=== PATIENT | female | born 2000 | race Caucasian/White ===

== ENCOUNTER 2019-01-23 21:55 | Emergency (ER) | payer OTHER ==
[2019-01-23 22:10] VITALS: BP 117/65; PULSE 90; TEMP 98.5; BMI 27.4
--- NOTE | 2019-01-23 22:32 | PDOC ---
Documentation entered by Sophy Hernandez SCRIBE, acting as scribe for Boni Saavedra MD. Boni Saavedra MD: This documentation has been prepared by the Mary eugene Daisy, SCRIBE, under my direction and personally reviewed by me in its entirety. I confirm that the documentation accurately reflects all work, treatment, procedures, and medical decision making performed by me. History of Present Illness - General Chief Complaint: Injury Stated Complaint: LT ANKLE PAIN Time Seen by Provider: 01/23/19 21:59 History Source: Patient Exam Limitations: No Limitations - History of Present Illness Initial Comments: 01/23/19 22:14 The patient is a 18YOF with a PMH of asthma (uses albuterol inhaler PRN) who presents to the ED for evaluation of left ankle injury today. She reports she fell down some stairs this morning and sustained the fall on her left ankle. Denies any head trauma or injuries to any other areas. She notes she did have a small left foot fracture and left ankle sprain on two different occasions. She reports it is painful to limp around on the left leg due to ankle pain. Took Tylenol approximately 1 hour ago. Last menstrual period was last week. Denies . Denies any numbness/tingling or decreased sensation in her left foot. Allergies: NKDA Past History - Past Medical History Allergies/Adverse Reactions: Allergies Allergy/AdvReac Type Severity Reaction Status Date / Time No Known Allergies Allergy Unverified 01/23/19 21:57 Home Medications: Ambulatory Orders Albuterol Sulfate Inhaler - [Ventolin Hfa Inhaler -] 1 puff IH PRN PRN 01/23/19 Escitalopram Oxalate [Lexapro -] 10 mg PO DAILY 01/23/19 Asthma: Yes COPD: No Psychiatric Problems: Yes (DEPRESSION) - Suicide/Smoking/Psychosocial Hx Smoking History: Never smoked Review of Systems - Review of Systems Able to Perform ROS?: Yes Comments:: 01/23/19 22:19 Adult ROS CONSTITUTIONAL: Absent: Fever, Chills, Diaphoresis, Generalized Weakness, Malaise, Loss of Appetite HEENT: Absent: Rhinorrhea, Nasal Congestion, Throat Pain, Throat Swelling, Difficulty Swallowing, Mouth Swelling, Ear Pain, Eye Pain, Visual Changes CARDIOVASCULAR: Absent: Chest Pain, Syncope, Palpitations, Irregular Heart Rate, Lightheadedness , Peripheral Edema RESPIRATORY: Absent: Cough, Shortness of Breath, SOB with Exertion, Orthopnea, Wheezing, Stridor, Hemoptysis GASTROINTESTINAL: Absent: Abdominal pain, Abdominal Distension, Nausea, Vomiting, Diarrhea, Constipation, Melena, Hematochezia GENITOURINARY: Absent: Dysuria, Frequency, Urgency, Hesitancy, Flank Pain, Genital Pain MUSCULOSKELETAL: Present: (+) Left ankle pain. Absent: Myalgia, Arthralgia, Back pain, Neck Pain SKIN: Absent: Rash, Itching, Pallor HEMEATOLOGIC/IMMUNOLOGIC: Absent: Easy Bleeding, Easy Bruising, Lymphadenopathy, Frequent infections ENDOCRINE: Absent: Unexplained Weight Gain, Unexplained Weight Loss, Heat Intolerance, Cold Intolerance NEUROLOGIC: Absent: Headache, Focal Weakness, Paresthesias, Vertigo, Lightheadedness, Unsteady Gait, Seizure, Mental Status Changes, Incontinence PSYCHIATRIC: Absent: Anxiety, Depression *Physical Exam - Vital Signs Last Vital Signs Temp Pulse Resp BP Pulse Ox 98.5 F 90 16 117/65 98 01/23/19 22:05 01/23/19 22:05 01/23/19 22:05 01/23/19 22:05 01/23/19 22:05 - Physical Exam Comments: 01/23/19 22:20 GENERAL: The patient is awake, alert, and fully oriented, in no acute distress. HEAD: Normal with no signs of trauma. EYES: Pupils equal, round and reactive to light, extraocular movements intact, sclera anicteric, conjunctiva clear. EXTREMITIES: (+) Tenderness and swelling over the left lateral malleolus. Medial maleolus normal without swelling foot nontender skin intact sensation and motor intact no deformities NEUROLOGICAL: Normal speech PSYCH: Normal mood, normal affect. SKIN: Warm, Dry, normal turgor, no rashes or lesions noted. ED Treatment Course - RADIOLOGY Radiology Studies Ordered: Category Date Time Status ANKLE-LEFT [RAD] Stat Radiology 01/23/19 22:29 Ordered Medical Decision Making - Medical Decision Making 01/23/19 22:57 18-year-old female presents after twisting her left ankle in a fall on the stairs this morning. She is complaining of left lateral malleolus pain, increased with ambulation. On examination, there is lateral malleolar tenderness. There is no deformity. There is no skin break. The neurovascular exam is normal. Impression: Left ankle sprain, rule out fracture Plan: X-ray of the left ankle. 3 views of the left ankle were performed and reviewed by me on a preliminary basis. There is no fracture or dislocation. Adam wrap applied, crutches given. Ibuprofen prescribed. Patient advised to follow-up if not improved after one week. *DC/Admit/Observation/Transfer Diagnosis at time of Disposition: Left ankle sprain Qualifiers: Encounter type: initial encounter Involved ligament of ankle: unspecified ligament Qualified Code(s): S93.402A - Sprain of unspecified ligament of left ankle, initial encounter - Discharge Dispostion Disposition: HOME Condition at time of disposition: Stable Decision to Admit order: No - Referrals Referrals: Kiran Whatley MD [Staff Physician] - 1 week - Patient Instructions Additional Instructions: Today you were evaluated for a left ankle injury. The x-ray shows no fracture. The diagnosis is a left ankle sprain. Use the Adam wrap when up, remove it at night. Apply ice packs for 20-30 minutes every few hours for the first 2 days to help relieve swelling and pain. Elevate the ankle, and get extra rest. Take ibuprofen 600 mg 3 times a day as needed for pain. Follow-up with Dr. Kiran Whatley, orthopedic surgeon, if the symptoms have not improved after one week. - Post Discharge Activity
[2019-01-23] MEDS ORDERED: IBUPROFEN 600 MG TABLET (FP) PO ONE ×2 (23:01→23:04)
== END 2019-01-23 23:08 | disposition home or self-care (01) ==
LOC: FER 21:55
DX: S93.402A Sprain of unspecified ligament of left ankle, initial encounter (principal); W10.9XXA Fall (on) (from) unspecified stairs and steps, initial encounter; Y93.89 Activity, other specified; Y92.89 Other specified places as the place of occurrence of the external cause
CPT/HCPCS: 73610-TC-LT-FY; 81025; 99282-25